=== PATIENT | male | born 1955 | race Caucasian/White ===

== ENCOUNTER 2019-08-27 20:43 | Inpatient (IN) | payer OTHER ==
[~2019-08-27] VITALS: Ht 185.4 cm; Wt 140.6 kg
[2019-08-27 10:45] VITALS: BP 148/68
[2019-08-27 20:51] VITALS: BP 168/98
[2019-08-27] MEDS ORDERED: ZOFRAN4 MG PO (21:00)
[2019-08-27] MEDS ORDERED: APAP650 PO (21:00)
[2019-08-27 21:23] LABS: ABSOLUTE LYMPHOCYTES 0.7 thou/uL (0.8-5.3); ABSOLUTE MONOCYTES 0.4 thou/uL (0.0-1.2); ABSOLUTE NEUTROPHILS 4.1 thou/uL (1.6-8.1); BASOPHILS 0.2 %; HEMATOCRIT 41.3 % (42.0-52.0); HEMOGLOBIN 14.6 gm/dL (14.0-18.0); LYMPHOCYTES 13.1 %; MCH 30.5 pg (26.0-34.0); MCHC 35.2 g/dL (28.0-37.0); MCV 86.6 fL (80.0-100.0); MONOCYTES 7.5 %; MPV 8.9 fl. (7.2-11.1); NUCLEATED RBCS 0 /100WBC; PLATELET COUNT* 193 thou/uL (150-400); POLYS 79.2 %; RBC 4.78 mil/uL (4.50-6.00); RDW-CV 14.5 % (10.5-14.5); WBC 5.1 thou/uL (4.0-11.0)
[2019-08-27 21:32] LABS: CALCIUM 8.6 mg/dL (8.5-10.1); CREATININE 1.3 mg/dL (0.6-1.3); POTASSIUM 3.6 mmol/L (3.5-5.1)
[2019-08-27 21:43] LABS: ALBUMIN 3.4 g/dL (3.4-5.0); MAGNESIUM 1.8 mg/dL (1.8-2.4); TOTAL BILIRUBIN 0.4 mg/dL (<0.1-1.0); TOTAL PROTEIN 7.8 g/dL (6.4-8.2)
[2019-08-27 22:20] LABS: INFLUENZA A ANTIGEN Negative (Negative); INFLUENZA B ANTIGEN Negative (Negative)
[2019-08-27 22:30] VITALS: BP 154/87
[2019-08-28 00:36] VITALS: BP 156/84
[2019-08-28 04:00] VITALS: BP 114/57
--- NOTE | 2019-08-28 05:42 | NUR ---
PATIENT WAS ADMITTED TO 223 AT 2239 FOR RESPIRATORY FAILURE. PATIENT HAS HAD FEVER X 10 DAYS AND LACK OF APPETITE. PATIENT C/O BODY ACHES AND WAS GIVEN HYDROCODONE 5/325MG PO X1 FOR PAIN. PATIENT HAD CT OF CHEST. REPORT IN CHART. PATIENT STATES HE IS WEAKER THAN NORMAL. PLACED ON FALL RISK PRECAUTIONS. PATIENT ON 2L O2 NC. O2 SAT WNL. LUNG SOUNDS DIMINISHED ALL LOBES. LAST BM WAS 08/27/2019. PATIENT HAS NS RUNNING AT 100ML/HR. CALL LIGHT, BEDSIDE TABLE, AND URINAL WITHIN REACH. PATIENT EDUCATED ON USING CALL LIGHT FOR ASSISTANCE OUT OF BED.
[2019-08-28 08:30] VITALS: BP 159/119
[2019-08-28 12:50] VITALS: BP 107/52
[2019-08-28 13:24] LABS: URINE BILIRUBIN NEGATIVE (Negative); URINE BLOOD TRACE (Negative); URINE CLARITY CLEAR; URINE COLOR YELLOW; URINE GLUCOSE-RANDOM NEGATIVE (Negative); URINE KETONES NEGATIVE (Negative); URINE LEUKOCYTES-REFLEX NEGATIVE (Negative); URINE NITRITE-REFLEX NEGATIVE (Negative); URINE PROTEIN 2+ (Negative); URINE UROBILINOGEN 0.2 E.U./dl (0.2-1.0)
[2019-08-28 13:29] LABS: SQUAMOUS 0-3 Few /LPF (0-3)
[2019-08-28 13:30] LABS: URINE RBC 0-2 Rare /HPF (0-2); URINE WBC-REFLEX 0-5 Rare /HPF (0-5)
[2019-08-28 13:31] LABS: CRYSTALS None Seen /LPF (None Seen); HYALINE CASTS 0-3 Few /LPF (None Seen); MUCUS 0-3 Light strn/LPF (None Seen)
[2019-08-28 17:58] VITALS: BP 139/52
[2019-08-28 20:00] VITALS: BP 124/77
--- NOTE | 2019-08-28 20:02 | NUR ---
I ASSUMED CARE OF THE PATIENT AT 0700. HE IS ALERT AND ORIENTED X4 AND IS UP AD DION. BED IS IN THE LOW LOCKED POSITION AND CALL LIGHT IS IN REACH. HOURLY ROUNDING IS IN PLACE AND PATIENT NEEDS ARE MET. WILL CONTINUE TO MONITOR. ISOLATION IS MAINTAINED. HE IS COVID PENDING. 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
[2019-08-29 00:01] VITALS: BP 173/88
[2019-08-29 04:30] VITALS: BP 163/83
[2019-08-29 05:01] LABS: HEMATOCRIT 37.8 % (42.0-52.0); MCH 30.4 pg (26.0-34.0); MCHC 34.4 g/dL (28.0-37.0); MCV 88.6 fL (80.0-100.0); RBC 4.27 mil/uL (4.50-6.00); RDW-CV 14.3 % (10.5-14.5); WBC 5.2 thou/uL (4.0-11.0)
--- NOTE | 2019-08-29 05:05 | NUR ---
ASSESSMENT COMPLETED CHARTED, MEDICATIONS ADMINISTERED PER MAR. HOURLY ROUNDING FOR SAFETY, CALL LIGHT WITHIN REACH, NO CURRENT C/O PAIN OR DISCOMFORT NOTED AT THIS TIME.
[2019-08-29 05:26] LABS: ALBUMIN 2.9 g/dL (3.4-5.0); CALCIUM 8.2 mg/dL (8.5-10.1); CREATININE 1.4 mg/dL (0.6-1.3); MAGNESIUM 1.9 mg/dL (1.8-2.4); POTASSIUM 3.7 mmol/L (3.5-5.1); TOTAL BILIRUBIN 0.3 mg/dL (<0.1-1.0); TOTAL PROTEIN 6.9 g/dL (6.4-8.2)
[2019-08-29 08:00] VITALS: BP 152/66
[2019-08-29 12:12] VITALS: BP 108/59
--- NOTE | 2019-08-29 13:40 | NUR ---
ASSUMED PT CARE REPORT RECEIVED FROM NURSE. PT IS OAX4 ON 4 L NC. O2 SAT 99%. PT HAS A FEVER. TEMP 103. 2. TYLENOL GIVEN. VSS. TRACING SR ON TEMPORARY OFFICE ASSISTANT. TEMP. RECHECKED AT 1200. 99.3. CALL LIGHT WITHIN REACH. WILL CONTINUE TO MONITOR
[2019-08-29 16:35] VITALS: BP 148/84
--- NOTE | 2019-08-29 19:11 | NUR ---
TEMP 37.4 AT 1200 AND AT 1600. PT DID COMPOLAIN OF NAUSEA THIS AFTERNOON AND ZOFRAN WAS ADMINISTERED. NO VOMITING RECORDED
[2019-08-29 20:10] VITALS: BP 168/92
[2019-08-30 02:22] VITALS: BP 167/78
--- NOTE | 2019-08-30 03:37 | NUR ---
ASSUMED CARE OF PT AT 1900. PT IS ALERT AND ORIENTED. VSS. PERRLA. NO COMPLAINTS OF PAIN. PT IS ON 4 LITERS O2. PT IS IN SINUS RYTHM ON THE TELEMETRY. PT IS RESTING COMFORTABLY IN BED. RESPIRATIONS ARE EVEN AND NONLABORED. WILL CONTINUE TO MONITOR PT.
[2019-08-30 05:26] LABS: ALBUMIN 2.7 g/dL (3.4-5.0); CALCIUM 7.8 mg/dL (8.5-10.1); CREATININE 1.3 mg/dL (0.6-1.3); MAGNESIUM 1.8 mg/dL (1.8-2.4); POTASSIUM 3.6 mmol/L (3.5-5.1); TOTAL BILIRUBIN 0.3 mg/dL (<0.1-1.0); TOTAL PROTEIN 6.6 g/dL (6.4-8.2)
[2019-08-30 08:00] VITALS: BP 142/80
--- NOTE | 2019-08-30 11:48 | NUR ---
CM SPOKE TO THE PT'S SPOUSE TO DISCUSS HIS HOME SITUATION, COGNITION AND MOBILITY PRIOR TO ADMISSION, AND TO INFORM OF THE ROLE OF CM. PT'S SPOUSE INFORMS THAT PRIOR TO ADMISSION PT WAS ACTIVE, INDEPENDENT, AND WORKED OUTSIDE THE HOME. 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 PT HAD 0 HX OF HH OR SNF. PT DOES NOT CURRENTLT HAVE A PCP HIS FAMILY HAD RECENTLY PURCHASED A HEALTHCARE PLAN AND [facility]QU[facility]YSIC[facility] (DR. LORRIE DURANT), BUT HAS NOT BEEN SEEN BY THIS PHYSICIAN AT THIS POINT HE JUST RECENTLY AQUIRED THIS PHYSICIAN. CM WILL REMAIN AVAILABLE TO ASSIST AND FOLLOW FOR SAFE DISCHARGE PLANNING.
[2019-08-30 12:00] VITALS: BP 151/82
--- NOTE | 2019-08-30 14:21 | NUR ---
PT HAS RESTED T/O DAY. COMPLAINTS OF CHILLS,NAUSEA AND BODY ACHES. PT HAS NON PRODUCTIVE COUGH. PT HAS BEEN FEBRILE ON 4L NC. TOLERATED CLEAR LIOQUIDS AND WAS ABLE TO TAKE ORAL MEDICATIONS. PT TOLERATED TRANSFER TO NEGATIVE PRESSURE UNIT WITHOUT COMPLAINT.
[2019-08-30 16:00] VITALS: BP 168/83
[2019-08-30 21:00] VITALS: BP 163/82
[2019-08-31] VITALS (7 sets, daily range): BP systolic 124–182; BP diastolic 70–98
--- NOTE | 2019-08-31 06:01 | NUR ---
PT A&O X4. O2 SAT 90-92% ON 4-5L. MEDS GIVEN ORDERED. ZOFRAN GIVEN FOR NAUSEA. C/O DIARRHEA. SCHEDULED TYLENOL GIVEN FOR TEMP, HEADACHE. PT REPORTED HE IS NOT FEELING GOOD IN GENERAL. WILL CONTINUE TO MONITOR.
--- NOTE | 2019-08-31 10:44 | NUR ---
Nutrition: Pt admitted with respiratory failure, COVID-19. On 4L O2 right now. Regular diet and Ensure Clear supplements ordered. Some N/V. Wt: 310#. BG 115, alb 2.7, prealb 9.5. Pt was assessed for high BMI of 40.9. Will not attempt to educate on wt loss at this time d/t COVID DX. Consider low nutrition risk. Encourage good po intake. RD available.
--- NOTE | 2019-08-31 17:31 | NUR ---
PT REMAINED ALERT AND ORIENTED. PT STATES HEADACHE AND NAUSEA, MEDS GIVEN ORDERED. FALL RISK PRECAUTIONS IN PLACE. HOURLY ROUNDING COMPLETED. WILL CONTINUE TO MONITOR.
[2019-09-01] VITALS: BP 186/98
--- NOTE | 2019-09-01 03:35 | NUR ---
ASSUMED CARE OF PT AT 1900. PT IS ALERT AND ORIENTED. VSS. PERRLA. NO COMPLAINTS OF PAIN. PT IS ON 5 LITERS OF O2. PT IS IN SINUS RYTHM ON THE TELEMETRY. PT IS RESTING COMFORTABLY IN BED. RESPIRATIONS ARE EVEN AND NONLABORED. WILL CONTINUE TO MONITOR PT.
[2019-09-01 04:28] VITALS: BP 148/73
[2019-09-01 05:31] LABS: HEMATOCRIT 38.8 % (42.0-52.0); HEMOGLOBIN 13.3 gm/dL (14.0-18.0); MCH 29.9 pg (26.0-34.0); MCHC 34.3 g/dL (28.0-37.0); MCV 87.3 fL (80.0-100.0); MPV 8.7 fl. (7.2-11.1); RBC 4.44 mil/uL (4.50-6.00); RDW-CV 14.2 % (10.5-14.5); WBC 5.8 thou/uL (4.0-11.0)
[2019-09-01 05:54] LABS: ALBUMIN 2.6 g/dL (3.4-5.0); CALCIUM 8.4 mg/dL (8.5-10.1); CREATININE 1.2 mg/dL (0.6-1.3); POTASSIUM 3.7 mmol/L (3.5-5.1); TOTAL BILIRUBIN 0.5 mg/dL (<0.1-1.0); TOTAL PROTEIN 7.1 g/dL (6.4-8.2)
[2019-09-01 09:12] VITALS: BP 167/91
[2019-09-01 12:00] VITALS: BP 171/94
[2019-09-01 16:00] VITALS: BP 144/57
--- NOTE | 2019-09-01 16:18 | NUR ---
PT REMAINED ALERT AND ORIENTED. PT RESTING IN BED. NAUSEA MEDS GIVEN ORDERED. FALL RISK PRECAUTIONS IN PLACE. HOURLY ROUNDING COMPLETED. WILL CONTINUE TO MONITOR.
[2019-09-01 20:00] VITALS: BP 199/97
[2019-09-02 04:53] LABS: CALCIUM 8.8 mg/dL (8.5-10.1); CREATININE 1.2 mg/dL (0.6-1.3); MAGNESIUM 2.1 mg/dL (1.8-2.4); POTASSIUM 3.5 mmol/L (3.5-5.1)
[2019-09-02 05:45] VITALS: BP 166/85
--- NOTE | 2019-09-02 05:59 | NUR ---
PT A&O, SAT 93-94% ON 4L. PRN CLONIDINE GIVEN FOR HIGH BP. PAIN MANAGED WITH SCHEDULED TYLENOL. AFEBRILE THIS SHIFT. ZOFRAN GIVEN FOR NAUSEA. PT SAID HE SLEPT BETTER. WILL CONTINUE TO MONITOR.
[2019-09-02 09:30] VITALS: BP 149/79
[2019-09-02 13:00] VITALS: BP 168/91
--- NOTE | 2019-09-02 16:57 | NUR ---
CM SPOKE TO THE PT TO DISCUSS DISCHARGE PLANNING THE PHYSICIAN INFORMED THAT THE PT MAY BE READY TO D/C HOME TOMORROW. PT INFORMS THAT THE PLAN IS FOR HIM TO D/C TO A HOTEL IN [place] AND STAY THERE TO AVIOD EXPOSING HIS FAMILY TO COVID-19. PT INFORMS THAT HE HAS NOT BEEN ABLE TO SECURE AN APPOINTMENT AT THIS TIME HIS SPOUSE STARTED A NEW JOB TODAY AND SHE WAS NOT ABLE TO MAKE ANY PHONE CALLS. CM ATTEMPTED TO CONTACT THE PT'S NEW PCP TO SECURE A F/U APPT FOR THE PT BUT DID NOT RECIEVE A RETURN CALL FROM THE PCP AT THE [facility]. CM WILL ATTEMPT TO CONTACT THE CLINIC TOMORROW TO SECURE AN APPT FOR THE PT. CM WILL REMAIN AVAILABLE TO FOLLOW AND ASSIST NEEDED.
[2019-09-02 17:04] VITALS: BP 152/101
--- NOTE | 2019-09-02 18:51 | NUR ---
PATIENT PLEASANT AND COOEPRATIVE THRU SHIFT. DENIES PAIN, SOB, N/V. SITTING UP ON SIDE OF BED THRU MOST OF SHIFT O2 DECREASED TO 1L/NC, RT NOTIFIED, PATIENT PLACED ON 2L/NC PER RT REPORT LATE AFTERNOON, SAT 93%. IV SITE NOTED WNL. PATIENT INDEP IN RM. TELE NOTED. HRLY ROUNDS DONE AND ISO PRECAUTIONS MAINTAINED. CALL LIGHT IN REACH. ~TJRN
[2019-09-02 20:00] VITALS: BP 173/89
[2019-09-03] VITALS: BP 176/87
[2019-09-03 04:00] VITALS: BP 143/67
--- NOTE | 2019-09-03 04:14 | NUR ---
PT A&OX4, ASSESSMENTS COMPLETED CHARTED, MEDICATIONS ADMINISTERED PER MAR. HOURLY ROUNDING FOR SAFETY. CONT ISOLATION [place] AND CONTACT. CALL LIGHT WITHIN REACH, CONT PLAN OF CARE.
[2019-09-03 10:00] VITALS: BP 155/70
[2019-09-03 14:00] VITALS: BP 153/70
--- NOTE | 2019-09-03 16:28 | NUR ---
CM SPOKE TO THE PT AND SPOUSE TO DISCUSS DEFINITIVE PLAN FOR D/C. PT AND SPOUSE INFORM THAT THE PLAN IS FOR THE PT TO D/C TO THE AIR B&B THAT HE WAS AT PRIOR TO ADMISSION AND STAY IN THE BASEMENT. ARTURO SPOKE TO WINTER WITH [employer] TO INFORM OF THE POSSIBLE NEED FOR O2 AT D/C AND FAXED PT'S FACESHEET AND H&P. PT'S REST AND ACTIVITY SATS WILL NEED TO BE FAXED [employer] [employer] TO WINTER IF PT QUALIFIES FOR O2 AT D/C. ARTURO INFORMED THE RN IN-CHARGE OF THE PT OF ALL OF THE ABOVE INFO. CM WILL REMAIN AVAILABLE TO ASSIST AND FOLLOW NEEDED. WINTER ([facility] *FOR OXYGEN) PHONE: [phone] FAX:[phone]
[2019-09-03 17:05] VITALS: BP 153/70
--- NOTE | 2019-09-03 19:00 | NUR ---
PATIENT PLEASANT AND COOPERATIVE W/ ASSESS AND CARES THIS SHIFT. SOB NOTED W/ ACTIVITY. O2 2L/NC. TELE NOTED SR THRU SHIFT. PATIENT DENIES PAIN, N/V. IV SITE NOTED WNL. PENDING COVID TEST FOR DC POC. PATIENT STATES VELAZQUEZ THIS AM, DECLINES PHARM AND NONPHARM INTERVENTIONS. CALL LIGHT IN REACH. ROUNDS DONE AND NEEDS MET. ~TJRN
[2019-09-03 20:00] VITALS: BP 168/81
[2019-09-04] VITALS (7 sets, daily range): BP systolic 128–202; BP diastolic 46–105
--- NOTE | 2019-09-04 05:07 | NUR ---
ELEVATED BP IN AM. CLEAR DRY COUGH. NO REPORTS OF NAUSEA, PAIN OR VOMITING. STILL UP AD DION AND ALERT AND ORIENTED X4. PLAN IS FOR MORE ABX. HE WAS ABLE TO SLEEP THROUGH THE NIGHT. MILD FEVER OF 99.4. LUNG SOUNDS DIMINISHED IN BASES. SINUS RHYTHM ON MONITOR. WILL CONTINUE TO MONITOR.
--- NOTE | 2019-09-04 18:54 | NUR ---
ASSUMED PT CARE AT 0730, FULL ASSESMENT DONE CHARTED. PT A/O X4, C/O PAIN IN HEAD AND RIGHT FOOT. THE RIGHT FOOT IS SLIGHTLY RED AND SWOLLEN AND TENDER TO THE TOUCH. REPORTED TO PHYSICIAN, NEW MEDS ORDERED. COVID 19 RESULTS BACK POSITIVE. REPORTED THIS TO PATIENT. HE HAS QUESTIONS ABOUT TREATMENT. ATTEMPTED TO EDUCATE. PT CALLS APPROPRIATLY, UP AD DION, FEBRILE ON AND OFF, TYLENOL GIVEN PER JUL.
[2019-09-05] VITALS: BP 189/98
[2019-09-05 04:00] VITALS: BP 144/99
--- NOTE | 2019-09-05 06:50 | NUR ---
PATIENT HAS SLEPT WELL THROUGHOUT MOST OF THE NIGHT. VSS ON 2L 02 VIA NASAL CANNULA. NO C/O SOA. PATIENT DID HAVE C/O MILD CHEST PAIN EARLY IN SHIFT AND EKG DONE AND SHOWED SINUS RHYTHM. NOTIFIED. NO NEW ORDERS RECEIVED. PATIENT REMAINS IN ISOLATION D/T POSITIVE COVID-19. IV IN LEFT FOREARM-SL. PATIENT INSTRUCTED TO USE CALL LIGHT WHEN NEEDING ASSISTANCE. HOURLY ROUNDS MADE. WILL CONTINUE WITH PLAN OF CARE AND NURSING TO MONITOR.
[2019-09-05 08:30] VITALS: BP 145/90
[2019-09-05 12:00] VITALS: BP 150/91
[2019-09-05 16:00] VITALS: BP 196/110
--- NOTE | 2019-09-05 16:20 | NUR ---
PATIENT ALERT AND ORIENTED X 4. VITAL SIGNS STABLE ON 2L O2 NASAL CANULA. AFEBRILE. UP INDEPENDENTLY IN ROOM. IV PATENT AND SALINE LOCKED. DENIES NAUSEA. PAIN BEING MANAGED WITH PO MEDICATION. LIDOCAINE PATCH IN PLACE TO RIGHT FOOT. ENHANCED PRECAUTIONS FOR COVID-[address] AND HAVE BEEN MAINTAINED THROUGHOUT THE SHIFT. CALL LIGHT WITHIN REACH. NURSING WILL CONTINUE TO MONITOR.
[2019-09-05 20:47] VITALS: BP 155/77
[2019-09-06] VITALS: BP 174/94
[2019-09-06 04:00] VITALS: BP 182/90
--- NOTE | 2019-09-06 07:42 | NUR ---
PATIENT HAS SLEPT WELL THROUGHOUT THE NIGHT. VSS ON 1L 02 VIA NASAL CANNULA. NO C/O SOA. PATIENT IS UP AD-DION. LUNGS STILL SLIGHTLY WHEEZY. IV IN LEFT FOREARM-SL. PATIENT INSTRUCTED TO USE CALL LIGHT WHEN NEEDING ASSISTANCE. HOURLY ROUNDS MADE. WILL CONTINUE WITH PLAN OF CARE AND NURSING TO MONITOR.
[2019-09-06 09:30] VITALS: BP 174/89
[2019-09-06 13:00] VITALS: BP 155/87
--- NOTE | 2019-09-06 16:39 | NUR ---
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 This traveling representative confirming that [facility] department will follow the pt and had also had a conversation with Whitney Ross. Pt possible to dc tomorrow or Friday pending gout under control. DC to Air B&B when pt is ready to dc. SW to continue to follow to assist with finalizing safe dc plan.
[2019-09-06 16:53] VITALS: BP 134/92
--- NOTE | 2019-09-06 18:48 | NUR ---
PATIENT PLEASANT AND COOPERATIVE W/ ASSESS AND CARES. O2 TO RA. PATIENT DENIES SOB. PATIENT STATES HAVING GOUT FLARE UP OF BOTH FEET. IV SITE NOTED WNL. SEE MAR. RESTING IN BED AT THIS TIME, DENIES NURSING NEEDS. CALL LIGHT IN REACH. ISO PRECAUTIONS MAINTAINED. ~TJRN
[2019-09-06 22:28] VITALS: BP 180/91
[2019-09-07 00:09] VITALS: BP 185/91
[2019-09-07 04:39] VITALS: BP 193/94
--- NOTE | 2019-09-07 07:36 | NUR ---
PATIENT HAS RESTED WELL THROUGHOUT THE NIGHT. VSS ON RA, ALTHOUGH BP ELEVATED AND PATIENT REMAINS AFEBRILE MEDICATIONS GIVEN ORDERED. ASSESSMENT CHARTED. PATIENT HAS REMAINED ON ISOLATION D/T POSITIVE COVID. IV IN LEFT FOREARM-SL. PATIENT INSTRUCTED TO USE CALL LIGHT WHEN NEEDING ASSISTANCE. HOURLY ROUNDS MADE. WILL CONTINUE WITH PLAN OF CARE AND NURSING TO MONITOR.
[2019-09-07 08:30] VITALS: BP 133/82
[2019-09-07 16:00] VITALS: BP 182/76
--- NOTE | 2019-09-07 17:07 | NUR ---
PT REMAINED ALERT AND ORIENTED. PT RESTING IN ROOM. FALL RISK PRECAUTIONS IN PLACE. HOURLY ROUNDING COMPLETED. WILL CONTINUE TO MONITOR.
[2019-09-07 20:30] VITALS: BP 170/92
[2019-09-08 00:02] VITALS: BP 130/85
--- NOTE | 2019-09-08 04:30 | NUR ---
PT A&O, ON RA. MEDS GIVEN ORDERED. PAIN MANAGED WITH SCHEDULED TRAMADOL. PT SLEEPING WELL THROUGH THE NIGHT. NO OTHER CONCERNS AT THIS TIME. WILL CONTINUE TO MONITOR.
[2019-09-08 05:10] VITALS: BP 159/78
[2019-09-08 07:40] VITALS: BP 177/84
[2019-09-08] MEDS ORDERED: TRAMADOL 50 MG50 MG PO (10:14)
[2019-09-08] MEDS ORDERED: ZINC SULFATE220 MG PO (10:14)
[2019-09-08] MEDS ORDERED: LISINOPRIL20 MG PO (10:14)
[2019-09-08] MEDS ORDERED: INDOMETHACIN 2525 MG PO (10:14)
[2019-09-08] MEDS ORDERED: VITAMIN C1000 MG PO (10:14)
[2019-09-08] MEDS ORDERED: MUCINEX600 MG PO (10:14)
[2019-09-08] MEDS ORDERED: MEDROLDOSEPACK PO (10:23)
[2019-09-08 12:09] VITALS: BP 177/81
[2019-09-08] MEDS ORDERED: HYDROCHLOROTH12.5 M1 PO (12:09)
[2019-09-08 16:37] VITALS: BP 175/90
--- NOTE | 2019-09-08 18:39 | NUR ---
ASSUMED CARE OF PATIENT AT APPROX 0730. ALERT AND ORIENTED X4. ASSESSMENT COMPLETED AND CHARTED. VSS ON ROOM AIR. PAIN MANAGED WITH ORDERED SCHEDULED MEDICATIONS. TRACING SINUS RHYTHM ON THE MONITOR. NO OTHER COMPLAINTS THIS SHIFT. PATIENT HAS BEEN DISCHARGED AT 1600, MEDICATIONS REVIEWED AND DISCHARGE INSTRUCTIONS DISCUSSED. PATIENT HAS YET TO LEAVE, ASKING MANY QUESTIONS AND STALLING HIS DISCHARGE. NOTIFIED WORKING SECOND HAND OF THIS AND AWAITING A RESPONSE. CALL LIGHT REMAINS IN REACH. HOURLY ROUNDS COMPLETED. WILL AWAIT ASSISTANCE FOR DISCHARGE...
--- NOTE | 2019-09-08 20:14 | NUR ---
PT READY FOR DISCHARGE, PT BELONGINGS WITH THE COVID INSTRUCTION PAPERS PROVIDED TO THE PATIENT. PT WORE N-95 MASK AND WHEELED VIA WHEECHAIR BY THIS NURSRE TO HIS CAR. HEART MONITOR RETURNED TO THE NURSES STATION.
--- NOTE | 2019-09-10 12:16 | EKG ---
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 : 1955 Requested By: Timothy Moss Order Number: [id number] Ramsey MD: Dayo Bernstein Measurements Intervals [place] Rate: 70 P: 20 IL: 181 QRS: 3 QRSD: 117 T: -3 QT: 419 QTc: 453 Interpretive Statements Sinus rhythm Inferior infarct, old Delayed R wave progression Baseline wander in lead(s) II,III,aVR,aVL,aVF,V2,V5 No previous ECG available for comparison Electronically Signed On 08-31-2019 15:39:32 CDT by Dayo Bernstein [email or web address] <ELECTRONICALLY SIGNED> By: Dayo Bernstein MD, FACC 08/31/19 1539 1315 1315 Dayo Bernstein MD, FACC /EPI
--- NOTE | 2019-09-10 12:23 | EKG ---
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 : 1955 Requested By: Timothy Moss Order Number: [id number] Ramsey MD: Miles Syed Measurements Intervals [place] Rate: 80 P: 27 PA: 183 QRS: 8 QRSD: 103 T: 8 QT: 372 QTc: 430 Interpretive Statements Sinus rhythm Abnormal R-wave progression, late transition Inferior infarct, old Compared to ECG 08/31/2019 13:15:18 Myocardial infarct finding still present Electronically Signed On 09-06-2019 15:29:23 CDT by Miles Syed [email or web address] <ELECTRONICALLY SIGNED> By: Miles Syed MD, [facility] 09/06/19 1529 55 55 Miles Syed MD, [facility] /EPI
== END 2019-09-08 20:00 | disposition home or self-care (01) | DRG 871 ==
LOC: M.ERS 20:43 → M.TBA-ER 21:27 → M.2W 21:27 → M.ORTHSURG 08-30 14:18
PROVIDERS: Physician Assistant; ADMIT Internal Medicine
DX: A41.89 Other specified sepsis (principal); U07.1 COVID-19; J12.9 Viral pneumonia, unspecified; J96.01 Acute respiratory failure with hypoxia; Z68.41 Body mass index [BMI] 40.0-44.9, adult; E66.01 Morbid (severe) obesity due to excess calories; I10 Essential (primary) hypertension; M10.9 Gout, unspecified; Z79.899 Other long term (current) drug therapy